=== PATIENT | female | born 1935 | race Caucasian/White ===

== ENCOUNTER 2025-06-04 13:40 | Observation (INO) ==
[2025-06-04] MEDS ORDERED: IOPAMIDOL 100 ML BOTTLE IV ONE ×2 (13:41)
[2025-06-04 14:39] LABS: Basophils # (Auto) 0 K/mcL (0.00-0.30); Basophils % (Auto) 0 % (0.0-2.0); Eosinophils # (Auto) 0.02 K/mcL (0.00-0.70); Eosinophils % (Auto) 0.2 % (0.0-7.0); Hematocrit 37.3 % (34.1-44.9); Hemoglobin 12.2 g/dL (11.2-15.7); Lymphocytes # (Auto) 1.48 K/mcL (1.50-4.80); Lymphocytes % (Auto) 11.6 % (15.5-49.0); Mean Corpuscular HGB Conc 32.7 g/dL (31.0-36.0); Monocytes # (Auto) 1.07 K/mcL (0.10-0.90); Monocytes % (Auto) 8.4 % (1.0-12.0); Neutrophils % (Auto) 79.6 % (38.0-78.0); Platelet Count 294 K/mcL (140-440); RBC 4.09 M/mcL (3.59-5.38); WBC 12.8 K/mcL (4.5-11.0)
[2025-06-04 14:49] LABS: POC Blood Urea Nitrogen 33.0 (6-20); POC CO2 25.0 (22-30); POC Calcium, Ionized 1.18 (1.16-1.32); POC Glucose, Random 103.0 (70-105)
[2025-06-04 15:48] LABS: Bilirubin,Urine Negative (Negative); Color,Urine Yellow; Glucose,Urine (UA) Negative (Negative); Ketones,Urine 40 mg/dL (Negative); Leukocyte Esterase,Urine Negative /uL (Negative); Mucus,Urine Mod /hpf; PH,Urine 5.5 (5.0-9.0); Protein,Urine 30 mg/dL (Negative); Specific Gravity,Urine 1.025 (1.000-1.035); Urobilinogen,Urine Normal
[2025-06-04] MEDS: 0.9 % SODIUM CHLORIDE 1,000 ML IV ONE ×2 (15:54→20:23)
[2025-06-04] MEDS: cefTRIAXone 1 GM VIAL IV ONE (16:46)
[2025-06-04 17:33] LABS: RBC Morphology NORMAL (Normal)
[2025-06-04 18:13] LABS: ALT/SGPT 9.0 U/L (<40); AST/SGOT 22.0 U/L (<32); Albumin 4.0 gm/dL (3.2-5.2); Alkaline Phosphatase 74.0 U/L (39-117); Bilirubin,Direct 0.3 mg/dL (<0.3); Bilirubin,Total 0.8 mg/dL (0.1-1.0); Globulin 2.5 gm/dL (2.2-3.7)
[2025-06-04] MEDS ORDERED: POTASSIUM CHLORIDE 20 MEQ TABLET PO PRN (19:50)
[2025-06-04] MEDS ORDERED: METOCLOPRAMIDE 10 MG/2 ML VIAL IV PRN (19:50)
[2025-06-04] MEDS ORDERED: POLYETHYLENE GLYCOL 3350 17 GM PACKET PO PRN (19:50)
[2025-06-04] MEDS ORDERED: ACETAMINOPHEN 325 MG TABLET PO PRN (19:50)
[2025-06-04] MEDS ORDERED: IPRATROPIUM/ALBUTEROL 3 ML AMPUL.NEB NEB PRN (19:50)
[2025-06-04] MEDS ORDERED: POTASSIUM CHLORIDE 40 MEQ in DEXTROSE 5% IN WATER 500 ML IV PRN (19:50)
[2025-06-04] MEDS ORDERED: LABETALOL HCL 20 MG/4 ML VIAL IV PRN (19:50)
[2025-06-04] MEDS ORDERED: ONDANSETRON 4 MG/2 ML VIAL IV PRN (19:50)
[2025-06-04] MEDS ORDERED: SENNOSIDES 1 TABLET PO PRN (19:50)
[2025-06-04] MEDS ORDERED: MAGNESIUM SULFATE 2 GM/50 ML BAG IV PRN (19:50)
[2025-06-04] MEDS: 0.9 % SODIUM CHLORIDE 10 ML SYRINGE IV SCH (20:23)
[2025-06-04] MEDS: DOCUSATE SODIUM 100 MG CAPSULE PO SCH (20:39)
[2025-06-05 06:26] LABS: Basophils # (Auto) 0.01 K/mcL (0.00-0.30); Basophils % (Auto) 0.1 % (0.0-2.0); Eosinophils # (Auto) 0.15 K/mcL (0.00-0.70); Eosinophils % (Auto) 1.6 % (0.0-7.0); Hematocrit 34.6 % (34.1-44.9); Hemoglobin 10.8 g/dL (11.2-15.7); Lymphocytes # (Auto) 1.92 K/mcL (1.50-4.80); Lymphocytes % (Auto) 20.7 % (15.5-49.0); Mean Corpuscular HGB Conc 31.2 g/dL (31.0-36.0); Monocytes # (Auto) 0.82 K/mcL (0.10-0.90); Monocytes % (Auto) 8.8 % (1.0-12.0); Neutrophils % (Auto) 68.6 % (38.0-78.0); Platelet Count 247 K/mcL (140-440); RBC 3.63 M/mcL (3.59-5.38); WBC 9.3 K/mcL (4.5-11.0)
[2025-06-05 07:49] LABS: ALT/SGPT 7 U/L (<40); AST/SGOT 28 U/L (<32); Albumin 3.4 gm/dL (3.2-5.2); Albumin/Globulin Ratio 1.6 (1.0-2.3); Alkaline Phosphatase 58 U/L (39-117); Anion Gap 14.0 (8.0-16.0); Bilirubin,Direct 0.3 mg/dL (<0.3); Bilirubin,Total 0.7 mg/dL (0.1-1.0); Blood Urea Nitrogen 15 mg/dL (8-23); Calcium 8.4 mg/dL (8.6-10.4); Carbon Dioxide 22 mmol/L (22-30); Chloride 108 mmol/L (96-108); Globulin 2.1 gm/dL (2.2-3.7); Glucose 78 mg/dL (70-105); Phosphorous 2.8 mg/dL (2.5-4.5); Potassium 3.0 mmol/L (3.3-5.1); Sodium 144 mmol/L (133-145); Triglycerides 51 mg/dL (<150); Uric Acid 4.9 mg/dL (2.5-8.0)
[2025-06-05] MEDS ORDERED: MELATONIN 3 MG TABLET PO PRN (08:29)
[2025-06-05] MEDS: LEVOTHYROXINE 25 MCG TABLET PO SCH (08:33)
[2025-06-05] MEDS: ENOXAPARIN 30 MG/0.3 ML SYRINGE SQ SCH (08:33)
[2025-06-05] MEDS: POTASSIUM CHLORIDE 20 MEQ TABLET PO PRN (12:43)
[2025-06-06 07:15] LABS: Anion Gap 9.0 (8.0-16.0); Blood Urea Nitrogen 16 mg/dL (8-23); Calcium 8.3 mg/dL (8.6-10.4); Carbon Dioxide 22 mmol/L (22-30); Chloride 110 mmol/L (96-108); Glucose 86 mg/dL (70-105); Potassium 3.6 mmol/L (3.3-5.1); Sodium 141 mmol/L (133-145)
[2025-06-06 11:34] VITALS: TEMP 98.4; O2SAT 94
== END 2025-06-06 13:38 ==
LOC: ED 13:40 → MEDSUR 13:40
PROVIDERS: ADMIT Internal Medicine; ATTEND Internal Medicine

== ENCOUNTER 2025-07-14 12:14 | Observation (INO) ==
[2025-07-14] MEDS: COLD 0.9 % SODIUM CHLORIDE 1,000 ML IV SCH (13:22)
[2025-07-14 13:30] LABS: Basophils # (Auto) 0.01 K/mcL (0.00-0.30); Basophils % (Auto) 0.1 % (0.0-2.0); Eosinophils # (Auto) 0.06 K/mcL (0.00-0.70); Eosinophils % (Auto) 0.7 % (0.0-7.0); Hematocrit 41.9 % (34.1-44.9); Hemoglobin 13.6 g/dL (11.2-15.7); Lymphocytes # (Auto) 1.89 K/mcL (1.50-4.80); Lymphocytes % (Auto) 22.0 % (15.5-49.0); Mean Corpuscular HGB Conc 32.5 g/dL (31.0-36.0); Monocytes # (Auto) 0.61 K/mcL (0.10-0.90); Monocytes % (Auto) 7.1 % (1.0-12.0); Neutrophils % (Auto) 69.9 % (38.0-78.0); Platelet Count 295 K/mcL (140-440); RBC 4.62 M/mcL (3.59-5.38); WBC 8.6 K/mcL (4.5-11.0)
[2025-07-14 13:57] LABS: ALT/SGPT 8 U/L (<40); AST/SGOT 16 U/L (<32); Albumin 4.0 gm/dL (3.2-5.2); Albumin/Globulin Ratio 1.5 (1.0-2.3); Alkaline Phosphatase 84 U/L (39-117); Anion Gap 15.0 (8.0-16.0); Bilirubin,Total 0.7 mg/dL (0.1-1.0); Blood Urea Nitrogen 18 mg/dL (8-23); Calcium 9.2 mg/dL (8.6-10.4); Carbon Dioxide 24 mmol/L (22-30); Chloride 99 mmol/L (96-108); Globulin 2.6 gm/dL (2.2-3.7); Glucose 108 mg/dL (70-105); Potassium 3.8 mmol/L (3.3-5.1); Sodium 138 mmol/L (133-145); Thyroid Stimulating Hormone 7.63 uIU/mL (0.27-5.01)
[2025-07-14] MEDS: cefTRIAXone 1 GM VIAL IV ONE (14:05)
[2025-07-14] MEDS: DOXYCYCLINE 100 MG in DEXTROSE 5% IN WATER 100 ML IV ONE (14:57)
[2025-07-14 15:06] LABS: Bilirubin,Urine Negative (Negative); Color,Urine Yellow; Glucose,Urine (UA) Negative (Negative); Ketones,Urine Trace mg/dL (Negative); Leukocyte Esterase,Urine Negative /uL (Negative); PH,Urine 7.0 (5.0-9.0); Protein,Urine Negative (Negative); Specific Gravity,Urine 1.010 (1.000-1.035); Urobilinogen,Urine Normal
[2025-07-14] MEDS: POTASSIUM CHLORIDE 20 MEQ TABLET PO ONE (15:07)
[2025-07-14] MEDS ORDERED: ACETAMINOPHEN 325 MG TABLET PO PRN (18:51)
[2025-07-14] MEDS ORDERED: SENNOSIDES 1 TABLET PO PRN (18:51)
[2025-07-14] MEDS ORDERED: POLYETHYLENE GLYCOL 3350 17 GM PACKET PO PRN (18:51)
[2025-07-14] MEDS ORDERED: ONDANSETRON 4 MG/2 ML VIAL IV PRN (18:51)
[2025-07-14] MEDS: LACTATED RINGERS 1,000 ML IV SCH (19:50)
[2025-07-14] MEDS: MELATONIN 3 MG TABLET PO SCH (19:51)
[2025-07-14] MEDS: 0.9 % SODIUM CHLORIDE 10 ML SYRINGE IV SCH (20:31)
[2025-07-15 06:23] LABS: Basophils # (Auto) 0.02 K/mcL (0.00-0.30); Basophils % (Auto) 0.3 % (0.0-2.0); Eosinophils # (Auto) 0.12 K/mcL (0.00-0.70); Eosinophils % (Auto) 1.7 % (0.0-7.0); Hematocrit 38.2 % (34.1-44.9); Hemoglobin 12.3 g/dL (11.2-15.7); Lymphocytes # (Auto) 2.46 K/mcL (1.50-4.80); Lymphocytes % (Auto) 34.2 % (15.5-49.0); Mean Corpuscular HGB Conc 32.2 g/dL (31.0-36.0); Monocytes # (Auto) 0.68 K/mcL (0.10-0.90); Monocytes % (Auto) 9.4 % (1.0-12.0); Neutrophils % (Auto) 54.3 % (38.0-78.0); Platelet Count 255 K/mcL (140-440); RBC 4.17 M/mcL (3.59-5.38); WBC 7.2 K/mcL (4.5-11.0)
[2025-07-15 06:38] LABS: ALT/SGPT 7 U/L (<40); AST/SGOT 13 U/L (<32); Albumin 3.4 gm/dL (3.2-5.2); Albumin/Globulin Ratio 1.6 (1.0-2.3); Alkaline Phosphatase 70 U/L (39-117); Anion Gap 12.0 (8.0-16.0); Bilirubin,Direct 0.2 mg/dL (<0.3); Bilirubin,Total 0.5 mg/dL (0.1-1.0); Blood Urea Nitrogen 12 mg/dL (8-23); Calcium 8.5 mg/dL (8.6-10.4); Carbon Dioxide 24 mmol/L (22-30); Chloride 106 mmol/L (96-108); Globulin 2.1 gm/dL (2.2-3.7); Glucose 95 mg/dL (70-105); Phosphorous 3.3 mg/dL (2.5-4.5); Potassium 3.3 mmol/L (3.3-5.1); Sodium 142 mmol/L (133-145); Triglycerides 52 mg/dL (<150); Uric Acid 4.4 mg/dL (2.5-8.0)
[2025-07-15] MEDS: LEVOTHYROXINE 25 MCG TABLET PO SCH (08:13)
[2025-07-15] MEDS: ENOXAPARIN 40 MG/0.4 ML SYRINGE SQ SCH (08:13)
[2025-07-15] MEDS: POTASSIUM CHLORIDE 20 MEQ TABLET PO ONE (12:11)
[2025-07-16 03:20] VITALS: O2SAT 97
[2025-07-16 06:58] LABS: Basophils # (Auto) 0.03 K/mcL (0.00-0.30); Basophils % (Auto) 0.5 % (0.0-2.0); Eosinophils # (Auto) 0.14 K/mcL (0.00-0.70); Eosinophils % (Auto) 2.3 % (0.0-7.0); Hematocrit 38.2 % (34.1-44.9); Hemoglobin 12.5 g/dL (11.2-15.7); Lymphocytes # (Auto) 1.70 K/mcL (1.50-4.80); Lymphocytes % (Auto) 28.4 % (15.5-49.0); Mean Corpuscular HGB Conc 32.7 g/dL (31.0-36.0); Monocytes # (Auto) 0.59 K/mcL (0.10-0.90); Monocytes % (Auto) 9.9 % (1.0-12.0); Neutrophils % (Auto) 58.7 % (38.0-78.0); Platelet Count 264 K/mcL (140-440); RBC 4.20 M/mcL (3.59-5.38); WBC 6.0 K/mcL (4.5-11.0)
[2025-07-16 07:20] LABS: ALT/SGPT 7 U/L (<40); AST/SGOT 13 U/L (<32); Albumin 3.5 gm/dL (3.2-5.2); Albumin/Globulin Ratio 1.6 (1.0-2.3); Alkaline Phosphatase 70 U/L (39-117); Anion Gap 10.0 (8.0-16.0); Bilirubin,Direct 0.2 mg/dL (<0.3); Bilirubin,Total 0.5 mg/dL (0.1-1.0); Blood Urea Nitrogen 8 mg/dL (8-23); Calcium 8.7 mg/dL (8.6-10.4); Carbon Dioxide 25 mmol/L (22-30); Chloride 106 mmol/L (96-108); Globulin 2.2 gm/dL (2.2-3.7); Glucose 89 mg/dL (70-105); Phosphorous 3.2 mg/dL (2.5-4.5); Potassium 3.7 mmol/L (3.3-5.1); Sodium 141 mmol/L (133-145); Triglycerides 64 mg/dL (<150); Uric Acid 4.1 mg/dL (2.5-8.0)
[2025-07-16 14:14] VITALS: TEMP 97
== END 2025-07-16 14:16 ==
LOC: ED 12:14 → MEDSUR 12:14
PROVIDERS: ADMIT Student in an Organized Health Care Education/Training Program; ATTEND Student in an Organized Health Care Education/Training Program

== ENCOUNTER 2025-10-27 08:53 | Inpatient (IN) ==
[2025-10-27] MEDS ORDERED: IOPAMIDOL 100 ML BOTTLE IV ONE (08:54)
[2025-10-27 10:14] LABS: Basophils # (Auto) 0.02 K/mcL (0.00-0.30); Basophils % (Auto) 0.1 % (0.0-2.0); Eosinophils # (Auto) 0.03 K/mcL (0.00-0.70); Eosinophils % (Auto) 0.2 % (0.0-7.0); Hematocrit 40.2 % (34.1-44.9); Hemoglobin 13.0 g/dL (11.2-15.7); Lymphocytes # (Auto) 1.02 K/mcL (1.50-4.80); Lymphocytes % (Auto) 6.4 % (15.5-49.0); Mean Corpuscular HGB Conc 32.3 g/dL (31.0-36.0); Monocytes # (Auto) 0.90 K/mcL (0.10-0.90); Monocytes % (Auto) 5.7 % (1.0-12.0); Neutrophils % (Auto) 87.0 % (38.0-78.0); Platelet Count 260 K/mcL (140-440); RBC 4.35 M/mcL (3.59-5.38); WBC 15.9 K/mcL (4.5-11.0)
[2025-10-27 10:24] LABS: ALT/SGPT 13 U/L (<40); AST/SGOT 20 U/L (<32); Albumin 4.0 gm/dL (3.2-5.2); Albumin/Globulin Ratio 1.5 (1.0-2.3); Alkaline Phosphatase 68 U/L (39-117); Anion Gap 11.0 (8.0-16.0); Bilirubin,Total 0.7 mg/dL (0.1-1.0); Blood Urea Nitrogen 16 mg/dL (8-23); Calcium 8.8 mg/dL (8.6-10.4); Carbon Dioxide 25 mmol/L (22-30); Chloride 102 mmol/L (96-108); Globulin 2.6 gm/dL (2.2-3.7); Glucose 121 mg/dL (70-105); Potassium 3.7 mmol/L (3.3-5.1); Sodium 138 mmol/L (133-145)
[2025-10-27] MEDS: ACETAMINOPHEN 325 MG TABLET PO ONE (11:14)
[2025-10-27] MEDS: LIDOCAINE 4% TOP PATCH TOPICAL ONE (11:14)
[2025-10-27] MEDS: 0.9 % SODIUM CHLORIDE 1,000 ML IV ONE (12:16)
[2025-10-27] MEDS ORDERED: MAGNESIUM SULFATE 2 GM/50 ML BAG IV PRN (15:27)
[2025-10-27] MEDS ORDERED: POLYETHYLENE GLYCOL 3350 17 GM PACKET PO PRN (15:27)
[2025-10-27] MEDS ORDERED: SENNOSIDES 1 TABLET PO PRN (15:27)
[2025-10-27] MEDS ORDERED: IPRATROPIUM/ALBUTEROL 3 ML AMPUL.NEB NEB PRN (15:27)
[2025-10-27] MEDS ORDERED: POTASSIUM CHLORIDE 40 MEQ in DEXTROSE 5% IN WATER 500 ML IV PRN (15:27)
[2025-10-27] MEDS ORDERED: ACETAMINOPHEN 325 MG TABLET PO PRN (15:27)
[2025-10-27] MEDS ORDERED: METOCLOPRAMIDE 10 MG/2 ML VIAL IV PRN (15:27)
[2025-10-27] MEDS ORDERED: METOPROLOL TARTRATE 5 MG/5 ML VIAL IV PRN (15:27)
[2025-10-27] MEDS ORDERED: ONDANSETRON 4 MG/2 ML VIAL IV PRN (15:27)
[2025-10-27] MEDS ORDERED: POTASSIUM CHLORIDE 20 MEQ TABLET PO PRN ×2 (15:27)
[2025-10-27 17:13] LABS: Bacteria,Urine 0 /hpf (0); Bilirubin,Urine NEGATIVE (Negative); Color,Urine LT. YELLOW; Glucose,Urine (UA) NEGATIVE (Negative); Ketones,Urine 15 mg/dL (Negative); Leukocyte Esterase,Urine NEGATIVE /uL (Negative); PH,Urine 7.0 (5.0-9.0); Protein,Urine NEGATIVE (Negative); Specific Gravity,Urine 1.010 (1.000-1.035); Urobilinogen,Urine 0.2 mg/dL
[2025-10-27] MEDS ORDERED: OLANZapine 10 MG VIAL IM PRN (19:12)
[2025-10-27] MEDS: DOCUSATE SODIUM 100 MG CAPSULE PO SCH (20:06)
[2025-10-27] MEDS: 0.9 % SODIUM CHLORIDE 10 ML SYRINGE IV SCH (20:06)
[2025-10-28] MEDS: ENOXAPARIN 40 MG/0.4 ML SYRINGE SQ SCH (08:03)
[2025-10-28] MEDS: LEVOTHYROXINE 25 MCG TABLET PO SCH (09:21)
[2025-10-28 12:25] LABS: Basophils # (Auto) 0.01 K/mcL (0.00-0.30); Basophils % (Auto) 0.1 % (0.0-2.0); Eosinophils # (Auto) 0.06 K/mcL (0.00-0.70); Eosinophils % (Auto) 0.6 % (0.0-7.0); Hematocrit 37.4 % (34.1-44.9); Hemoglobin 11.9 g/dL (11.2-15.7); Lymphocytes # (Auto) 1.86 K/mcL (1.50-4.80); Lymphocytes % (Auto) 18.8 % (15.5-49.0); Mean Corpuscular HGB Conc 31.8 g/dL (31.0-36.0); Monocytes # (Auto) 0.84 K/mcL (0.10-0.90); Monocytes % (Auto) 8.5 % (1.0-12.0); Neutrophils % (Auto) 71.7 % (38.0-78.0); Platelet Count 253 K/mcL (140-440); RBC 4.02 M/mcL (3.59-5.38); WBC 9.9 K/mcL (4.5-11.0)
[2025-10-31 07:37] VITALS: TEMP 97.8; O2SAT 92
== END 2025-10-31 08:54 | DRG 948 ==
LOC: MEDSUR 08:53 → ED 08:53 → MEDSUR 15:32
PROVIDERS: ADMIT Internal Medicine; ATTEND Internal Medicine